=== PATIENT | male | born 2000 | race Hispanic/Latino ===

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

== ENCOUNTER 2022-02-24 23:20 | Emergency (ER) | payer OTHER ==
[~2022-02-24] VITALS: Ht 167.6 cm; Wt 110.7 kg
[2022-02-24] MEDS ORDERED: DIPHENOXYLATE HCL/ATROPINE 2.5/0.025 MG TAB PO ONE (23:45)
[2022-02-24] MEDS ORDERED: ONDANSETRON 4MG INJ ONE (23:45)
[2022-02-25] MEDS ORDERED: ONDANSETRON 4MG INJ IVP ONE
[2022-02-25] MEDS ORDERED: 0.9%NACL 1000ML 2,000 ML IV ONE
[2022-02-25] MEDS ORDERED: DIPHENOXYLATE HCL/ATROPINE 2.5/0.025 MG TAB PO ONE
[2022-02-25 00:20] LABS: CREATININE 0.9 mg/dL (0.5-1.5); POTASSIUM 4.3 mmol/L (3.5-5.1)
[2022-02-25 00:25] LABS: ALBUMIN 3.8 g/dL (3.5-5.0); TOTAL PROTEIN, SERUM 7.9 g/dL (6.0-8.3)
[2022-02-25 00:26] VITALS: BP 149/85
[2022-02-25 00:26] LABS: APPEARANCE,URINE CLEAR (CLEAR); BILIRUBIN,URINE 0.5 mg/dL (NEGATIVE); COLOR,URINE YELLOW (YELLOW); GLUCOSE, URINE (UA) NEGATIVE (NEGATIVE); KETONES,URINE 20 mg/dL (NEGATIVE); LEUKOCYTE ESTERASE ,URINE NEGATIVE Leu/uL (NEGATIVE); NITRATE,URINE NEGATIVE (NEGATIVE); OCCULT BLOOD,URINE NEGATIVE (NEGATIVE); PROTEIN,URINE 50 mg/dL (NEGATIVE)
[2022-02-25 00:31] LABS: BACTERIA,URINE RARE /HPF (None Seen); MUCUS,URINE MANY LPF (None Seen)
[2022-02-25 00:33] LABS: BASOPHILS % (AUTO) 0.5 % (0.0-5.0); EOSINOPHILS % (AUTO) 2.5 % (0.0-8.0); HEMATOCRIT 45.6 % (42-54); LYMPHOCYTES % (AUTO) 24.1 % (21.0-51.0); MEAN CORPUSCULAR HEMOGLOBIN 27.2 pg (27.0-33.0); MEAN CORPUSCULAR HGB CONC 33.3 g/dL (32.0-36.0); MEAN CORPUSCULAR VOLUME 81.6 fL (79-99); MONOCYTES % (AUTO) 7.8 % (3.0-13.0); NEUTROPHILS % (AUTO) 64.8 % (40.0-77.0); PLATELET COUNT (AUTO) 228 K/uL (130-400); RED BLOOD CELL COUNT(AUTO) 5.59 MIL/uL (4.50-6.20); RED CELL DISTRIBUTION WIDTH 13.1 % (11.0-15.5)
[2022-02-25] MEDS ORDERED: OMEP20TA2 PO (01:21)
[2022-02-25] MEDS ORDERED: DIPH1TAB PO (01:21)
[2022-02-25] MEDS ORDERED: ONDA-104 PO (01:21)
[2022-02-26] MEDS ORDERED: ONDA4TAB10 PO (03:08)
== END 2022-02-25 01:32 | disposition home or self-care (01) ==
LOC: EDH 23:20
DX: A08.4 Viral intestinal infection, unspecified (principal); F41.9 Anxiety disorder, unspecified; J45.909 Unspecified asthma, uncomplicated; F32.A Depression, unspecified; Z20.822 Contact with and (suspected) exposure to COVID-19
CPT/HCPCS: 99283; 96374; 87635; 96361; 80053; 83690; 85025; 87804 ×2; 81001; 36415; C9803; J7030; J2405

== ENCOUNTER 2022-02-26 00:59 | Emergency (ER) | payer OTHER ==
[~2022-02-26] VITALS: Ht 167.6 cm; Wt 108.0 kg
[~2022-02-26 00:59] MED LIST: DIPH1TAB PO; OMEP20TA2 PO; ONDA-104 PO
[2022-02-26] MEDS ORDERED: KETOROLAC 30MG VIAL (30MG/ML) IVP ONE (02:00)
[2022-02-26] MEDS ORDERED: ONDANSETRON 4MG INJ IVP ONE (02:00)
[2022-02-26] MEDS ORDERED: 0.9%NACL 1000ML 1,000 ML IV ONE (02:00)
[2022-02-26 02:43] LABS: BASOPHILS % (AUTO) 0.5 % (0.0-5.0); EOSINOPHILS % (AUTO) 4.1 % (0.0-8.0); LYMPHOCYTES % (AUTO) 31.3 % (21.0-51.0); MEAN CORPUSCULAR HEMOGLOBIN 27.5 pg (27.0-33.0); MEAN CORPUSCULAR HGB CONC 33.4 g/dL (32.0-36.0); MEAN CORPUSCULAR VOLUME 82.4 fL (79-99); NEUTROPHILS % (AUTO) 54.7 % (40.0-77.0); PLATELET COUNT (AUTO) 241 K/uL (130-400); RED BLOOD CELL COUNT(AUTO) 5.34 MIL/uL (4.50-6.20); RED CELL DISTRIBUTION WIDTH 13.2 % (11.0-15.5); WHITE BLOOD COUNT (AUTO) 9.4 K/uL (4.8-10.8)
[2022-02-26 02:52] LABS: POTASSIUM 3.6 mmol/L (3.5-5.1)
[2022-02-26 02:57] LABS: ALBUMIN 3.7 g/dL (3.5-5.0); TOTAL PROTEIN, SERUM 7.8 g/dL (6.0-8.3)
[2022-02-26] MEDS ORDERED: ONDA4TAB10 PO (03:08)
[2022-02-26 03:29] VITALS: BP 114/60
== END 2022-02-26 03:41 | disposition home or self-care (01) ==
LOC: EDH 00:59
DX: A08.4 Viral intestinal infection, unspecified (principal); J45.909 Unspecified asthma, uncomplicated; F32.A Depression, unspecified; F41.9 Anxiety disorder, unspecified; Z79.1 Long term (current) use of non-steroidal anti-inflammatories (NSAID)
CPT/HCPCS: 99284; 96374; 96361; 96375; 80053; 83690; 85025; 36415; J7030; J2405; J1885

== ENCOUNTER 2022-09-29 20:09 | Emergency (ER) | payer OTHER ==
[~2022-09-29] VITALS: Ht 167.6 cm; Wt 99.8 kg
[~2022-09-29 20:09] MED LIST changes: +ONDA4TAB10 PO
[2022-09-30] MEDS ORDERED: IBUP-2070 PO (01:24)
[2022-09-30] MEDS ORDERED: AMOX500C2 PO (01:24)
[2022-09-30] MEDS ORDERED: SUCRALFATE 1 GM TABLET PO ONE (01:30)
[2022-09-30] MEDS ORDERED: AMOXICILLIN 500 MG CAPSULE PO ONE (01:30)
[2022-09-30] MEDS ORDERED: LIDOCAINE HCL 2% VISCOUS 15 ML UDCUP PO ONE (01:30)
[2022-09-30 01:38] VITALS: BP 138/88
== END 2022-09-30 01:39 | disposition home or self-care (01) ==
LOC: EDH 20:09
DX: J10.1 Influenza due to other identified influenza virus with other respiratory manifestations (principal); H92.02 Otalgia, left ear; F41.9 Anxiety disorder, unspecified; F32.A Depression, unspecified; Z20.822 Contact with and (suspected) exposure to COVID-19; Z79.899 Other long term (current) drug therapy
CPT/HCPCS: 99284; 87635; 87880; 87804 ×2; C9803

== ENCOUNTER 2024-12-31 18:14 | Emergency (ER) | payer SELFPAY ==
[~2024-12-31] VITALS: Ht 167.6 cm; Wt 92.3 kg
[~2024-12-31 18:14] MED LIST changes: +AMOX500C2 PO; +IBUP-1492 PO; +ONDA-243 PO; -ONDA4TAB10 PO
--- NOTE | 2024-12-31 19:49 | NUR ---
PT ADVISED BROKEN TOOTH SINCE MONDAY AND i ASKED IF HE HAD ATTEMPTED TO GO TO THE DENTIST AND PT ADVISED UNABLE TO AFORD DENTAL WORK. I ADVISED HIM MD WOULD SEE HIM AND POSSIBLY BE ABLE TO RESOLVE PAIN HOWEVER WILL PROBABLY NOT BE RESOLVED AND WILL NEED TO FOLLOW UP WITH DENTIST. PT INFORMED ME HE HAD DONE THE RESEARCH AND IF HOSPITAL DEEMED IT EMERGENT THEY COULD GET IT TAKEN CARE OF. i PROVIDED INFORMATION RELATED TO LOCAL CLINICS THAT MIGHT ASSIST WITH COST SUCH OLIVER VIERA AND PATIENT REQUESTED TO SPEAK TO CHARGE NURSE. ESCALATED TO [facility]
[2024-12-31] MEDS: LIDOCAINE HCL 2% VISCOUS 15 ML UDCUP PO ONE (20:02)
[2024-12-31 20:25] LABS: IMMATURE GRANULOCYTE ABSOLUTE 0.08 K/uL (0-1); NUCLEATED RED BLOOD CELLS 0.0 % (0.0-0.19); PLATELET COUNT (AUTO) 253 K/uL (130-400); RED BLOOD CELL COUNT(AUTO) 4.73 MIL/uL (4.50-6.20); RED CELL DISTRIBUTION WIDTH 12.1 % (11.0-15.5); WHITE BLOOD COUNT (AUTO) 15.0 K/uL (4.8-10.8)
[2024-12-31 20:35] LABS: CREATININE 1.0 mg/dL (0.5-1.3); GLOMERULAR FILTR. RATE CALC 106.0 mL/min (>90); GLUCOSE,RANDOM 101.0 mg/dL (70-105); SODIUM SERUM 141.0 mmol/L (136-145); UREA NITROGEN, BLOOD 11.0 mg/dL (7-18)
--- NOTE | 2024-12-31 21:45 | ERN ---
ED Note History of Present Illness Stated Complaint: TOOTHACHE Chief Complaint: Tooth Ache/Pain Time Seen by MD: 18:51 Time Seen by Midlevel: 18:51 Dictation: The patient is a 24-year-old male who presents to the emergency department with toothache onset two days ago. Patient reports he was flossing when he fracture his left upper molar. Allergies: Coded Allergies: No Known Drug Allergies (Unverified Allergy, Unknown, 02/24/22) Home Meds Active Scripts Ibuprofen (Ibuprofen) 600 Mg Tablet, 600 MG PO Q6H PRN for PAIN, #30 TAB 0 Refills Prov:ANYI NEWTON MD 09/30/22 Amoxicillin (Amoxicillin) 500 Mg Capsule, 500 MG PO TID for 10 Days, #30 CAP 0 Refills Prov:ANYI NEWTON MD 09/30/22 Ondansetron (Ondansetron Odt) 4 Mg Tab.rapdis, 8 MG PO Q8H PRN for NAUSEA/VOMITING, #20 TAB Prov:WILLIAM LOMBARDO MD 02/26/22 Omeprazole Magnesium (Prilosec Otc) 20 Mg Tablet.dr, 20 MG PO DAILY, #30 TAB Prov:WILLIAM LOMBARDO MD 02/25/22 Diphenoxylate HCl/Atropine (Lomotil Tablet) 1 Each Tablet, 1 TAB PO QIDP PRN for DIARRHEA for 5 Days, #10 TAB 0 Refills Prov:WILLIAM LOMBARDO MD 02/25/22 Ondansetron HCl (Ondansetron HCl) 4 Mg Tablet, 4 MG PO TIDP PRN for VOMITING, #20 TAB Prov:WILLIAM LOMBARDO MD 02/25/22 Past Medical History Past Medical History: Anxiety, Asthma, GERD Additional Past Medical Hx: HX OF PANIC ATTACKS Surgical History: None Family History: Negative Social History: Drugs, Lives with family RN Note Reviewed/Agreed w/PFSH: Yes Review of System Dictation Constitutional: Negative for fever,chills, and weight loss Eyes: Negative for injury, pain,redness, and discharge ENT: Negative for injury,pain or swelling positive for toothache Cardiovascular: Negative for chest pain, palpitations, and edema Respiratory: Negative for shortness of breath, cough, and wheezing, Abdomen/GI: Negative for abdominal pain, nausea, vomiting, diarrhea, and constipation Back: Negative for injury and pain : Negative for injury, bleeding and discharge MS/Extremity: Negative for injury and deformity Skin: Negative for rash, and discoloration Neuro: Negative for headache, weakness, numbness, tingling, and seizure Psych: Negative for suicide ideation, homicidal ideation, and hallucinations Initial Vital Sign VS Vital Signs Date Time Temp Pulse Resp B/P (MAP) Pulse Ox O2 Delivery O2 Flow Rate FiO2 12/31/24 18:18 98.1 80 16 118/76 97 Room Air 0 12/31/24 18:21 21 Physical Exam Dictation Vital Signs reviewed General Appearance: Alert, oriented x 3, no acute distress, well developed, nour ished. Head and Face: non-traumatic. Eyes: PERRL, pink conjunctivas, eyelid no trauma, anterior chamber with arcus senilis. Ears: Pinnas intact and no signs of trauma or erythema ear canals clear and no discharge TM no erythema Nose: No discharge, no bleeding. Oropharynx: Mouth normal, tongue pink., fractured and tooth decay noted to 14 tooth , mild swelling to left cheek pharynx clear,no erythema, tonsils no exudates, no abscesses noted, mucous membrane moist Neck: Supple, non-tender, no thyromegaly, no masses, no JVD, no bruits Breast:Deferred Chest:No tenderness, no crepitus, no paradoxical movement, no retractions Lungs:Clear, well-ventilated, symmetric, no rales, no wheezing, no rhonchi, no stridor, good breath sounds bilaterally Heart: Regular rate, regular rhythm, no murmur, no gallops Vascular: no peripheral edema, Abdomen: Soft, positive bowel sounds, nondistended, no guarding, nontender, no rebound, no masses no hepatomegaly, no splenomegaly, no Hagan's sign, no hernias. Rectal: Deferred Genital: Deferred Neurological: Normal speech, motor function intact, sensory function intact Musculoskeletal: Neck nontender, full range of motion, back nontender, full range of motion, Extremities: nontender, full range of motion Skin: Color pink, dry, no turgor, no rash, no lacerations, no abrasions, no contusions. Lymphatic: Deferred Results (Laboratory/Radiology) Laboratory/Radiology Laboratory Tests Test 12/31/24 20:13 White Blood Count 15.0 K/uL (4.8-10.8) H Red Blood Count 4.73 MIL/uL (4.50-6.20) Hemoglobin 13.8 g/dL (14.0-18.0) L Hematocrit 41.0 % (42-54) L Mean Corpuscular Volume 86.7 fL (79-99) Mean Corpuscular Hemoglobin 29.2 pg (27.0-33.0) Mean Corpuscular Hemoglobin Concent 33.7 g/dL (32.0-36.0) Red Cell Distribution Width 12.1 % (11.0-15.5) Platelet Count 253 K/uL (130-400) Mean Platelet Volume 11.0 fL (7.5-10.5) H Immature Granulocyte % (Auto) 0.5 % (0-1) Neutrophils (%) (Auto) 58.4 % (40.0-77.0) Lymphocytes (%) (Auto) 28.8 % (21.0-51.0) Monocytes (%) (Auto) 9.8 % (3.0-13.0) Eosinophils (%) (Auto) 2.0 % (0.0-8.0) Basophils (%) (Auto) 0.5 % (0.0-5.0) Neutrophils # (Auto) 8.8 K/uL (1.8-7.7) H Lymphocytes # (Auto) 4.3 K/uL (1.0-4.8) Monocytes # (Auto) 1.5 K/uL (0.1-1.0) H Eosinophils # (Auto) 0.30 K/uL (0.00-0.70) Basophils # (Auto) 0.07 K/uL (0.00-0.20) Absolute Immature Granulocyte (auto 0.08 K/uL (0-1) Nucleated Red Blood Cells 0.0 % (0.0-0.19) Sodium Level 141 mmol/L (136-145) Potassium Level 4.1 mmol/L (3.5-5.1) Chloride Level 103 mmol/L (101-111) Carbon Dioxide Level 31 mmol/L (21-32) Blood Urea Nitrogen 11 mg/dL (7-18) Creatinine 1.0 mg/dL (0.5-1.3) Glomerular Filtration Rate Calc 106 mL/min (>90) Random Glucose 101 mg/dL (70-105) Total Calcium 9.1 mg/dL (8.5-10.1) Labs Reviewed?: Yes ED Course ED Course Orders Procedure Category Date Status Time Cbc With Differential LAB 12/31/24 Complete 19:46 Basic Metabolic Panel LAB 12/31/24 Complete 19:46 Lidocaine Hcl 2% PHA 12/31/24 Complete Viscous (Lidocaine Hcl 20:00 Clindamycin 150mg Cap PHA 12/31/24 Logged (Cleocin 150mg Cap 22:00 Current Medications Medications (Trade) Dose Ordered Sig/Luis Route PRN Reason Start Time Stop Time Status Last Admin Dose Admin Clindamycin HCl (Cleocin 150mg Cap) 300 mg ONCE ONCE PO 12/31/24 22:00 12/31/24 22:01 UNV Lidocaine HCl (Lidocaine HCl 2% Viscous) 10 ml ONCE ONCE PO 12/31/24 20:00 12/31/24 20:01 DC 12/31/24 20:02 Vital Signs Date Time Temp Pulse Resp B/P (MAP) Pulse Ox O2 Delivery O2 Flow Rate FiO2 12/31/24 20:44 98.1 78 16 122/74 98 Room Air* 0 12/31/24 20:04 98.1 80 16 118/76 Room Air* 0 21 12/31/24 18:21 98.1 80 16 118/76 97 Room Air* 0 12/31/24 18:18 98.1 80 16 118/76 97 Room Air 0 Medical Decision Making MDM The patient is a 24-year-old male who presents to the emergency department with toothache onset two days ago. Patient reports he was flossing when he fracture his left upper molar. CBC showed leukocytosis, no anemia, chemistry showed no electrolyte imbalance, patient with mild swelling to left upper cheek. Fractured and tooth decay noted to 14 molar No signs of abscess or drainage. Patient will be started on antibiotics and instructed to follow up with dentist. Patient was stable vital signs, in no acute distress. Differential diagnosis: Tooth fracture, tooth decay, sepsis Need for hospitalization: Patient does not meet criteria for hospitalization. There are no social concerns with this patient. DX & DISP Disposition: Discharge Departure Impression: Primary Impression: Fracture, tooth Additional Impression: Tooth decay Condition: Stable Scripts Clindamycin HCl (Clindamycin HCl) 300 Mg Capsule 1 CAP PO QID for 10 Days, #40 CAP 0 Refills Prov: POWELL,NICOL CARTON FILLING MACHINE OPERATOR 12/31/24 Additional Instructions: Please follow up with your primary doctor in 1-2 days. Follow up with a dentist. Take your medications as prescribed. If anything worsens please return to ER. FOLLOW-UP WITH PRIMARY CARE PROVIDER IN 1 TO 2 DAYS. TAKE MEDICATIONS DIRECTED HERE IN THE EMERGENCY ROOM. OKAY TO CONTINUE HOME MEDICATIONS UNLESS OTHERWISE DISCUSSED DURING YOUR VISIT IN THE EMERGENCY ROOM TODAY. RETURN TO YOUR NEAREST EMERGENCY ROOM IF SYMPTOMS WORSEN OR IF THERE IS NO IMPROVEMENT. CALL 911 IF YOU NEED IMMEDIATE ASSISTANCE. TAKE TYLENOL [id number] NEEDED AND IF NO CONTRAINDICATIONS ARE PRESENT. INCREASE ORAL HYDRATION. A WOUND CULTURE OR URINE CULTURE WAS ORDERED HERE IN THE EMERGENCY ROOM DEPARTMENT PLEASE FOLLOW-UP WITH PRIMARY CARE PROVIDER AND ADVISE THEM TO GET REPEAT PORTS FROM OUR FACILITY. IF YOU HAD ANY VANCE WRAP/SPLINTS THAT WERE APPLIED HERE, PLEASE DO NOT REMOVE THEM UNTIL YOU SEE YOUR PRIMARY CARE OR SPECIALTY. Referrals: SELF,REFERRAL (PCP) Time of Disposition: 22:06 I have examined patient, & reviewed all documents, & agreed W/ the Diagnosis, and Plan NICOL POWELL Dec 31, 2024 21:45
[2024-12-31] MEDS ORDERED: CLINDAMYCIN 150 MG CAP PO ONE (22:00)
[2024-12-31] MEDS ORDERED: CLIN-141 PO (22:07)
[2024-12-31 22:33] VITALS: BP 122/74; PULSE 78; RESP 16; TEMP 98.1; O2SAT 98
== END 2024-12-31 22:34 | disposition home or self-care (01) ==
LOC: EDH 18:14
DX: K03.81 Cracked tooth (principal); K02.9 Dental caries, unspecified; J45.909 Unspecified asthma, uncomplicated; F41.9 Anxiety disorder, unspecified; Z79.899 Other long term (current) drug therapy
CPT/HCPCS: 36415; 80048; 85025; 99283